=== PATIENT | male | born 1995 | race Caucasian/White ===

== ENCOUNTER 2016-06-08 18:40 | Emergency (ER) | payer OTHER ==
[2016-06-08 19:15] VITALS: BP 165/95
--- NOTE | 2016-06-08 19:55 | ER Document Report ---
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 Patient had multiple hits to the head during the game and had to come out of the game with headache. TRAVEL OUTSIDE OF THE [place] IN LAST 30 DAYS: No - HPI Onset: Other - 2 days ago Onset/Duration: Gradual Quality of pain: Dull Severity: Moderate Pain Level: 2 Associated Symptoms: denies: Chest pain, Fever, Shortness of breath Exacerbated by: Movement, Other - Sitting up past Relieved by: Denies Similar symptoms previously: No Recently seen / treated by doctor: No - Related Data Smoking: Non-smoker Frequency of alcohol use: None Drug Abuse: None Past Medical History - General Information source: Patient - Social History Cigarette use (# per day): No Chew tobacco use (# tins/day): No Frequency of alcohol use: None Drug Abuse: None Lives with: Family Family history: None - Medical History Medical History: Negative Renal/ Medical History: Denies: Hx Peritoneal Dialysis Surgical Hx: Negative Review of Systems - Review of Systems Constitutional: denies: Chills, Fever EENT: No symptoms reported Cardiovascular: No symptoms reported Respiratory: No symptoms reported Gastrointestinal: No symptoms reported Genitourinary: No symptoms reported Male Genitourinary: No symptoms reported Musculoskeletal: See HPI Skin: No symptoms reported Hematologic/Lymphatic: No symptoms reported Neurological/Psychological: No symptoms reported Physical Exam - Vital signs Vitals: Temp Pulse Resp BP Pulse Ox 97.3 F 70 16 165/95 H 100 06/08/16 19:12 06/08/16 19:12 06/08/16 19:12 06/08/16 19:12 06/08/16 19:12 Notes: Physical exam: GENERAL: 21-year-old man, alert and oriented 3, no acute distress HEAD: Atraumatic, normocephalic. EYES: Pupils equal round and reactive to light, extraocular movements intact, sclera anicteric, conjunctiva are normal. ENT: TMs normal, nares patent, oropharynx clear without exudates. Moist mucous membranes. NECK: Normal range of motion, supple without lymphadenopathy or JVD. LUNGS: Breath sounds clear to auscultation bilaterally and equal. No wheezes rales or rhonchi. HEART: Regular rate and rhythm without murmurs, rubs or gallops. ABDOMEN: Soft, normoactive bowel sounds. No tenderness to palpation. No guarding, no rebound. No masses appreciated. EXTREMITIES: Normal range of motion, no pitting or edema. No clubbing or cyanosis. NEUROLOGICAL: Cranial nerves II through XII grossly intact. Motor 5 over 5, sensory grossly intact, reflexes symmetrical, cerebellar (finger to nose) grossly normal, Romberg negative, Normal speech, normal gait. PSYCH: Normal mood, normal affect. SKIN: Warm, Dry, normal turgor, no rashes or lesions noted. Course - Vital Signs Vital signs: Temp Pulse Resp BP Pulse Ox 97.3 F 70 16 165/95 H 100 06/08/16 19:12 06/08/16 19:12 06/08/16 19:12 06/08/16 19:12 06/08/16 19:12 - Diagnostic Test Radiology reviewed: Image reviewed, Reports reviewed - CT of the head shows no bleed or bony injury Doctor's Discharge - Discharge Clinical Impression: concussion Condition: Stable Disposition: HOME, SELF-CARE Instructions: Concussion ([facility]) Additional Instructions: As we discussed, the head CT shows no bleeding or bony injury. Your symptoms are consistent with a concussion. Recommendations: Take Tylenol and ibuprofen for pain. Take Zofran for nausea if needed. Return to work on Tuesday giving a plenty of time to rest. No lifting and no football for 2 weeks (until the headaches are completely resolve). Return to the ER for any worsening nausea, worsening headache or any concerns he getting worse. Follow-up with a primary care doctor. Note that your blood pressure was elevated today. That can sometimes occur in the setting of an ER visit. This is why it's important to have it rechecked at some time. If you do not have a primary care doctor: I left the number for 3 below Recommendations: It is recommended to followup with a primary care doctor within the next 2 days. If you do not have a primary care doctor or you are unable to get an apointment during that time, I left the number for some internal medicine physicians that are affiliated with this [facility]. Dr Carlisle Address: [address] [place] [address] , [place] [address] Dr. Sean Ragland [address], [place] [phone] Dr Jones Address: [address] [place] [address] [address], [place] [address] Prescriptions: Ondansetron HCl [Zofran 4 mg Tablet] 1 - 2 tab PO Q4H PRN #10 tablet PRN Reason: Forms: Return to Work, Elevated Blood Pressure
== END 2016-06-08 21:17 | disposition home or self-care (01) ==
LOC: ER 18:40
DX: S06.0X9A Concussion with loss of consciousness of unspecified duration, initial encounter (principal); X58.XXXA Exposure to other specified factors, initial encounter; Y93.61 Activity, american tackle football
CPT/HCPCS: 70450; 99284